=== PATIENT | female | born 1960 | race African-American/Black ===

== ENCOUNTER 2018-02-18 10:49 | Emergency (ER) | payer MEDICAID, OTHER ==
[~2018-02-18] VITALS: Ht 175.3 cm; Wt 72.7 kg
[2018-02-18] MEDS ORDERED: PENI250T4 PO (10:54)
[2018-02-18 11:51] VITALS: BP 156/80
[2018-02-18] MEDS ORDERED: HYDROCODONE/ACETAMINOPHEN 10-325 MG TABLET PO ONE (12:15)
== END 2018-02-18 12:57 | disposition home or self-care (01) ==
LOC: EMS 10:50
DX: S99.922A Unspecified injury of left foot, initial encounter (principal); F17.210 Nicotine dependence, cigarettes, uncomplicated; W22.8XXA Striking against or struck by other objects, initial encounter; Y93.89 Activity, other specified; Y92.89 Other specified places as the place of occurrence of the external cause; Y99.8 Other external cause status
CPT/HCPCS: 99284